=== PATIENT | female | born 1970 | race American Indian/Alaskan Native ===

== ENCOUNTER 2017-03-21 13:48 | Emergency (ER) | payer OTHER ==
[2017-03-21 14:00] VITALS: BP 139/89; PULSE 109; RESP 20; TEMP 98.3; O2SAT 99
[2017-03-21 14:28] LABS: URINE BILIRUBIN NEGATIVE (NEGATIVE); URINE BLOOD NEGATIVE (NEGATIVE); URINE GLUCOSE (UA) NORMAL (Normal); URINE KETONE NEGATIVE (NEGATIVE); URINE LEUKOCYTE ESTERASE NEG Leu/uL (Negative); URINE PROTEIN NEGATIVE (NEGATIVE); URINE UROBILINOGEN NORMAL mg/dL (0.2-1.0); WBC URINE < 1 /hpf (0-5)
[2017-03-21 14:34] LABS: URINE COLOR LIGHT YELLOW (YELLOW)
--- NOTE | 2017-03-21 14:41 | RAD ---
PROCEDURE: Radiographs of the Lumbar Spine. HISTORY: back pain COMPARISON: None available. FINDINGS: BONES: Mild curvature of the lumbar spine convex to the right. No listhesis. No acute displaced fracture identified. DISC SPACES: Unremarkable. OTHER FINDINGS: None. IMPRESSION: Mild curvature of the lumbar spine convex to the right. No acute displaced fracture identified.
--- NOTE | 2017-03-21 15:28 | C.PDOC ---
History Of Present Illness The patient, a 46 y/o female, presents to the ED for evaluation of sore throat which began around 4 days ago. Patient also notes she has been experiencing back pain. Patient denies fever, chills, ear pain, headache, upper/lower extremity numbness/weakness, or recent trauma/injury. Time Seen by Provider: 03/21/17 14:09 Chief Complaint (Nursing): ENT Problem History Per: Patient History/Exam Limitations: None Onset/Duration Of Symptoms: Days (4) Current Symptoms Are (Timing): Still Present Quality (Mouth/Throat): Other (+sore throat ) Past Medical History Reviewed: Historical Data, Nursing Documentation, Vital Signs Vital Signs: Last Vital Signs Temp 98.3 F 03/21/17 14:00 Pulse 109 H 03/21/17 14:00 Resp 20 03/21/17 14:00 BP 139/89 03/21/17 14:00 Pulse Ox 99 03/21/17 19:57 - Medical History PMH: Asthma Surgical History: No Surg Hx Family History: States: Unknown Family Hx - Social History Hx Tobacco Use: No Hx Alcohol Use: No Hx Substance Use: No - Immunization History Hx Tetanus Toxoid Vaccination: No Hx Influenza Vaccination: No Hx Pneumococcal Vaccination: Yes Review Of Systems Except As Marked, All Systems Reviewed And Found Negative. Constitutional: Negative for: Fever, Chills ENT: Positive for: Throat Pain. Negative for: Ear Pain Musculoskeletal: Positive for: Back Pain Neurological: Negative for: Weakness, Numbness, Headache Physical Exam - Physical Exam Appears: Non-toxic, No Acute Distress Skin: Normal Color, Warm, Dry Head: Atraumatic, Normacephalic Eye(s): bilateral: Normal Inspection, PERRL, EOMI Ear(s): Bilateral: Normal Nose: Normal, No Discharge Oral Mucosa: Moist Throat: Erythema, No Exudate (tonsillar ), Other (uvula is midline) Neck: Normal ROM, Supple Chest: Symmetrical, No Deformity, No Tenderness Cardiovascular: Rhythm Regular, No Murmur Respiratory: Normal Breath Sounds, No Rales, No Rhonchi, No Wheezing Back: Vertebral Tenderness (lower back ) Extremity: Normal ROM, Capillary Refill (less than 2 seconds ) Neurological/Psych: Oriented x3, Normal Speech, Normal Cognition Gait: Steady ED Course And Treatment O2 Sat by Pulse Oximetry: 99 (on RA) Pulse Ox Interpretation: Normal - Other Rad LS spine ap/lat X-Ray: Interpreted by Me, Viewed By Me, Read By Radiologist Interpretation: Accession No. : [id number]. Patient Name / ID : JAIME PRESSLEY / [id number]. Exam Date : 03/21/2017 14:30:08 ( Approved ). Study Comment : Sex / Age : F / 46Y. Creator : Pebbles Marin MD. Dictator : Pebbles Marin MD. Manager Special Events : Manufacturing Scheduler : Pebbles Marin MD. Approver2 : Report Date : 03/21/2017 14:39:19. My Comment : . PROCEDURE: Radiographs of the Lumbar Spine. HISTORY: back pain. COMPARISON: None available. FINDINGS: BONES: Mild curvature of the lumbar spine convex to the right. No listhesis. No acute displaced fracture identified. DISC SPACES: Unremarkable. OTHER FINDINGS: None. IMPRESSION: Mild curvature of the lumbar spine convex to the right. No acute displaced fracture identified. Progress Note: UA and LS Spine AP/LAT ordered. UA results are within normal limits. Patient recieved Amoxicillin. On reassessment, pt is resting comfortably , showing no signs of distress and reports an improvement in her symptoms. Pt is ambulatory in the ED without distress and is stable for discharge. Patient is advised to follow up with PMD within 1-2 days for further evaluation. Reassessment Condition: Improved Disposition - Disposition Referrals: Claudia Rubalcava MD [Medical Doctor] - Disposition: HOME/ ROUTINE Disposition Time: 15:26 Condition: STABLE Additional Instructions: Follow up with PMD within 1-2 days. Return to ED if feel worse. 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 - Scribe Statement The provider has reviewed the documentation as recorded by the Scribe (Leslie Land) All medical record entries made by the Scribe were at my direction and personally dictated by me. I have reviewed the chart and agree that the record accurately reflects my personal performance of the history, physical exam, medical decision making, and the department course for this patient. I have also personally directed, reviewed, and agree with the discharge instructions and disposition.
== END 2017-03-21 15:37 | disposition home or self-care (01) ==
LOC: C.ER 13:48
DX: J02.9 Acute pharyngitis, unspecified (principal); M54.5 Low back pain

== ENCOUNTER 2017-08-23 12:01 | Emergency (ER) | payer OTHER ==
[2017-08-23 12:10] VITALS: TEMP 98.1
--- NOTE | 2017-08-23 13:05 | C.PDOC ---
History Of Present Illness 47 y/o female with Hx of asthma, c/o right foot pain and swelling for 3 days. Pain is constant and throbbing that is 6/10. 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 Took 600mg of Ibuprofen with some relief. Denies weakness, numbness, or trauma. Time Seen by Provider: 08/23/17 12:33 Chief Complaint (Nursing): Lower Extremity Problem/Injury History Per: Patient History/Exam Limitations: no limitations Onset/Duration Of Symptoms: Days (3), Persistent Current Symptoms Are (Timing): Still Present Severity: Moderate Pain Scale Rating Of: 6 Recent travel outside of the [place]: No Additional History Per: Patient Past Medical History Reviewed: Historical Data, Nursing Documentation, Vital Signs Vital Signs: Last Vital Signs Temp 98.1 F 08/23/17 12:09 Pulse 83 08/23/17 12:09 Resp 18 08/23/17 12:09 BP 122/80 08/23/17 12:09 Pulse Ox 98 08/23/17 13:07 - Medical History PMH: Asthma Family History: States: Unknown Family Hx - Social History Hx Tobacco Use: No Hx Alcohol Use: Yes Hx Substance Use: No - Immunization History Hx Tetanus Toxoid Vaccination: No Hx Influenza Vaccination: No Hx Pneumococcal Vaccination: No Review Of Systems Constitutional: Negative for: Other (Trauma) Musculoskeletal: Positive for: Foot Pain (Right, swelling and pain.) Neurological: Negative for: Weakness, Numbness Physical Exam - Physical Exam Appears: Non-toxic, No Acute Distress Skin: Warm, Dry Extremity: Normal ROM, Tenderness (Tenderness to the ball of the right foot.), Capillary Refill (<2secs), No Deformity, Swelling (Swelling to the superficial portion of the right foot) Pulses: Left Dorsalis Pedis: Normal, Right Dorsalis Pedis: Normal Neurological/Psych: Oriented x3, Normal Motor, Normal Sensation ED Course And Treatment O2 Sat by Pulse Oximetry: 98 (RA) Pulse Ox Interpretation: Normal Medical Decision Making Medical Decision Making: Impression: * Right foot pain and swelling for 3 days. Plans: * Tylenol * Motrin Disposition Counseled Patient/Family Regarding: Diagnosis, Need For Followup, Rx Given - Disposition Disposition: HOME/ ROUTINE Disposition Time: 13:09 Condition: STABLE Prescriptions: Ibuprofen [Motrin] 600 mg PO TID #15 tab Instructions: RICE Therapy (ED) Forms: [facility] (Grenadian), General Discharge Instructions, Work Excuse - POA Present On Arrival: None - Clinical Impression Clinical Impression: Plantar fasciitis - Scribe Statement The provider has reviewed the documentation as recorded by the Scribe Liset thompson All medical record entries made by the Scribe were at my direction and personally dictated by me. I have reviewed the chart and agree that the record accurately reflects my personal performance of the history, physical exam, medical decision making, and the department course for this patient. I have also personally directed, reviewed, and agree with the discharge instructions and disposition.
[2017-08-23 13:19] VITALS: BP 120/77; PULSE 87; RESP 16; O2SAT 100
== END 2017-08-23 13:19 | disposition home or self-care (01) ==
LOC: C.ER 12:01
DX: M72.2 Plantar fascial fibromatosis (principal)

== ENCOUNTER 2018-03-14 12:03 | Emergency (ER) | payer OTHER ==
[2018-03-14 12:14] VITALS: BP 128/88; PULSE 99; RESP 20; TEMP 97.9; O2SAT 99
--- NOTE | 2018-03-14 12:56 | C.PDOC ---
History Of Present Illness 47 y/o female presents to the ER complaining of itchy, irritated eyes, runny nose, sinus pressure, and non-productive cough which has been present for the past 2 weeks. Patient states that she has a history of seasonal allergies and her PMD typically prescribes her medications. However, her PMD was very booked in the office and she should not get an appointment. Patient denies fever, sore throat, ear pain, SOB. Time Seen by Provider: 03/14/18 12:15 Chief Complaint (Nursing): Cough, Cold, Congestion History Per: Patient History/Exam Limitations: no limitations Onset/Duration Of Symptoms: Days Current Symptoms Are (Timing): Still Present Associated Symptoms: Cough. denies: Fever, Chills, Sore Throat Severity: Mild Past Medical History Reviewed: Historical Data, Nursing Documentation, Vital Signs Vital Signs: Last Vital Signs Temp 97.9 F 03/14/18 12:12 Pulse 99 H 03/14/18 12:12 Resp 20 03/14/18 12:12 BP 128/88 03/14/18 12:12 Pulse Ox 99 03/14/18 15:08 - Medical History PMH: Asthma Surgical History: No Surg Hx Family History: States: No Known Family Hx - Social History Hx Tobacco Use: No Hx Alcohol Use: Yes Hx Substance Use: No - Immunization History Hx Tetanus Toxoid Vaccination: No Hx Influenza Vaccination: No Hx Pneumococcal Vaccination: No Review Of Systems Constitutional: Negative for: Fever, Chills Eyes: Positive for: Other (itchy eyes) ENT: Positive for: Nose Congestion. Negative for: Ear Pain, Throat Pain Respiratory: Positive for: Cough (non-productive cough). Negative for: Shortness of Breath Gastrointestinal: Negative for: Nausea, Vomiting, Abdominal Pain, Diarrhea Genitourinary: Negative for: Dysuria, Hematuria Skin: Negative for: Rash Physical Exam - Physical Exam Appears: Well, Non-toxic, No Acute Distress Skin: Normal Color, Warm, Dry, No Rash Head: Normacephalic Eye(s): bilateral: Normal Inspection, PERRL, Other (no erythema, no discharge) Ear(s): Bilateral: Normal Nose: Normal, No Discharge (rhinorrhea) Oral Mucosa: Moist Throat: Normal, No Erythema, No Exudate Neck: Supple Lymphatic: No Adenopathy Cardiovascular: Rhythm Regular Respiratory: Normal Breath Sounds, No Rales, No Rhonchi, No Wheezing Neurological/Psych: Oriented x3 ED Course And Treatment O2 Sat by Pulse Oximetry: 99 (RA) Pulse Ox Interpretation: Normal Progress Note: Patient given Claritin PO in ED, as well as Rxs for Claritin and Nasonex. He was instructed to follow up with PMD in 1-2 days, and understands she should return to ED if symptoms worsen. Reassessment Condition: Improved Disposition Counseled Patient/Family Regarding: Diagnosis, Need For Followup, Rx Given - Disposition Referrals: Claudia Rubalcava MD [Medical Doctor] - Disposition: HOME/ ROUTINE Disposition Time: 13:00 Condition: STABLE Additional Instructions: FOLLOW UP WITH YOUR DOCTOR IN 1-2 DAYS USE MEDICATIONS DIRECTED RETURN TO ER IF SYMPTOMS WORSEN Prescriptions: Loratadine [Claritin] 10 mg PO DAILY #30 tab Mometasone Furoate [Nasonex] 0.05 mg NS DAILY #1 bottle Forms: [employer] (Khmer) Print Language: BENINESE - Clinical Impression Clinical Impression: Seasonal allergies - Scribe Statement The provider has reviewed the documentation as recorded by the Yvette Santiago Provider Attestation: All medical record entries made by the Taniibe were at my direction and personally dictated by me. I have reviewed the chart and agree that the record accurately reflects my personal performance of the history, physical exam, medical decision making, and the department course for this patient. I have also personally directed, reviewed, and agree with the discharge instructions and disposition.
== END 2018-03-14 13:05 | disposition home or self-care (01) ==
LOC: C.ER 12:03
DX: J30.2 Other seasonal allergic rhinitis (principal)

== ENCOUNTER 2018-08-15 17:43 | Emergency (ER) | payer OTHER ==
[2018-08-15] MEDS ORDERED: Sodium Chloride 0.9% 1,000 ML IV ONE ×2 (19:11)
--- NOTE | 2018-08-15 19:13 | C.PDOC ---
History Of Present Illness 48 y/o female presents to the ED complaining of intermittent abdominal pain since this morning. She describes the pain as a cramping sensation.The patient admits to experiencing associated vomiting and diarrhea. She denies any dysuria or fever at this time. Time Seen by Provider: 08/15/18 19:09 Chief Complaint (Nursing): Abdominal Pain History Per: Patient History/Exam Limitations: no limitations Onset/Duration Of Symptoms: Hrs Current Symptoms Are (Timing): Still Present Quality Of Discomfort: Cramping Associated Symptoms: Vomiting, Diarrhea. denies: Fever Recent travel outside of the [place]: No Past Medical History Reviewed: Historical Data, Nursing Documentation, Vital Signs Vital Signs: Last Vital Signs Temp 99 F 08/15/18 17:50 Pulse 96 H 08/15/18 17:50 Resp 18 08/15/18 17:50 BP 122/84 08/15/18 17:50 Pulse Ox 96 08/15/18 17:50 - Medical History PMH: Asthma Other Surgeries: L breast mastecomy, partial hysterectomy, lower abdominal surgery Family History: States: Unknown Family Hx - Social History Hx Tobacco Use: No Hx Alcohol Use: Yes Hx Substance Use: No - Immunization History Hx Tetanus Toxoid Vaccination: No Hx Influenza Vaccination: No Hx Pneumococcal Vaccination: No Review Of Systems Except As Marked, All Systems Reviewed And Found Negative. Constitutional: Negative for: Fever, Chills Gastrointestinal: Positive for: Abdominal Pain. Negative for: Vomiting, Diarrhea Physical Exam - Physical Exam Appears: Non-toxic, No Acute Distress Skin: Warm, Dry Head: Atraumatic, Normacephalic Eye(s): bilateral: Normal Inspection, PERRL, EOMI Ear(s): Bilateral: Normal Nose: Normal Oral Mucosa: Moist Neck: Supple Chest: Symmetrical Cardiovascular: Rhythm Regular, No Murmur Respiratory: Normal Breath Sounds, No Rales, No Rhonchi, No Wheezing Gastrointestinal/Abdominal: Soft, Tenderness (nonspecific), No Guarding, No Rebound Back: No CVA Tenderness Extremity: Normal ROM Extremity: Bilateral: Normal Color And Temperature, Normal ROM Neurological/Psych: Oriented x3, Normal Speech ED Course And Treatment - Laboratory Results Result Diagrams: 08/15/18 19:19 08/15/18 19:19 O2 Sat by Pulse Oximetry: 96 (RA) Pulse Ox Interpretation: Normal Medical Decision Making Medical Decision Making: Impression:48 y/o female with abdominal pain with associated diarrhea and vomiting since this morning plan: -CMP -Lipase -CBC -Bently 20 mg IM -Zofran inj 4 mg -IV Fluids -HCG -UA Disposition Counseled Patient/Family Regarding: Diagnosis - Disposition Referrals: [facility] [Outside] Disposition: HOME/ ROUTINE Disposition Time: 23:57 Condition: STABLE Prescriptions: Dicyclomine [Dicyclomine HCl] 10 mg PO QID #14 cap Instructions: Viral Gastroenteritis Forms: [employer] (Mozambican) - POA Present On Arrival: None - Clinical Impression Clinical Impression: Abdominal pain, Gastroenteritis - 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 - Scribe Statement The provider has reviewed the documentation as recorded by the Scribe (Karime Abdalla) Provider Attestation: All medical record entries made by the Scribe were at my direction and personally dictated by me. I have reviewed the chart and agree that the record accurately reflects my personal performance of the history, physical exam, medical decision making, and the department course for this patient. I have also personally directed, reviewed, and agree with the discharge instructions and disposition.
[2018-08-15 19:23] LABS: BASO % 0.4 % (0.0-2.0); EOS # 0.2 K/uL (0.0-0.7); EOS % 2.5 % (0.0-4.0); HEMOGLOBIN 13.2 g/dL (11.0-16.0); LYMPH % 16.4 % (20.0-40.0); MEAN CELL VOLUME 91.5 fL (81.0-99.0); MEAN CORPUSCULAR HEMOGLOBIN 29.9 pg (27.0-31.0); MEAN CORPUSCULAR HGB CONC 32.7 g/dL (33.0-37.0); MEAN PLATELET VOLUME 8.7 fL (7.2-11.7); MONO # 0.4 K/uL (0.0-0.8); MONO % 5.7 % (0.0-10.0); NEUT # 4.8 K/uL (1.8-7.0); NRBC % 0.2 % (0.0-2.0); RBC 4.43 Mil/uL (3.80-5.20); RED CELL DISTRIBUTION WIDTH 13.9 % (11.5-14.5); WHITE BLOOD COUNT 6.3 K/uL (4.8-10.8)
[2018-08-15] MEDS ORDERED: Sodium Chloride 0.9% 1,000 ML ONE ×2 (19:23→20:12)
[2018-08-15 19:34] LABS: ALB/GLOB RATIO 1.4 (1.0-2.1); ALBUMIN 4.1 g/dL (3.5-5.0); ALT/SGPT 24 U/L (9-52); AST/SGOT 14 U/L (14-36); BLOOD UREA NITROGEN 11 mg/dL (7-17); CALCIUM 9.4 mg/dl (8.6-10.4); GFR NON-AFRICAN AMERICAN > 60; LIPASE 127 U/L (23-300)
[2018-08-15 22:01] LABS: SQUAMOUS EPITHIAL 13 /hpf (0-5); URINE BACTERIA OCC (<OCC); URINE BILIRUBIN NEGATIVE (NEGATIVE); URINE BLOOD NEGATIVE (NEGATIVE); URINE CLARITY Hazy (Clear); URINE GLUCOSE (UA) NORMAL (Normal); URINE LEUKOCYTE ESTERASE TRACE Leu/uL (Negative); URINE PROTEIN NEGATIVE (NEGATIVE); URINE UROBILINOGEN NORMAL mg/dL (0.2-1.0)
[2018-08-15 22:02] LABS: HCG,QUALITATIVE URINE NEGATIVE (NEGATIVE)
[2018-08-15 22:03] LABS: URINE COLOR YELLOW (YELLOW)
[2018-08-15 23:41] VITALS: BP 100/66; PULSE 77; RESP 22; TEMP 98.5
[2018-08-16] VITALS: O2SAT 96
== END 2018-08-16 00:12 | disposition home or self-care (01) ==
LOC: C.ER 17:43
DX: K52.9 Noninfective gastroenteritis and colitis, unspecified (principal); R10.9 Unspecified abdominal pain
CPT/HCPCS: 80053; 81001; 83690; 84703; 85025; 96361; 96372; 96374; 99285; J0500; J2405; J7030

== ENCOUNTER 2018-09-18 10:15 | Emergency (ER) | payer OTHER ==
[2018-09-18 10:27] VITALS: BMI 27.4
[2018-09-18 10:31] VITALS: BP 119/84; PULSE 82; RESP 18; TEMP 98.8; O2SAT 95
--- NOTE | 2018-09-18 10:53 | C.PDOC ---
History Of Present Illness 48-year-old female, presents to the emergency department with complaints of sore throat, runny nose and cough x3 days. Patient denies any fever, shortness of breath, abdominal pain, nausea/vomiting, diarrhea, or any other associated symptoms. No other complaints at this time. Time Seen by Provider: 09/18/18 10:34 Chief Complaint (Nursing): ENT Problem History Per: Patient History/Exam Limitations: no limitations Current Symptoms Are (Timing): Still Present Past Medical History Reviewed: Historical Data, Nursing Documentation, Vital Signs Vital Signs: Last Vital Signs Temp 98.8 F 09/18/18 10:27 Pulse 82 09/18/18 10:27 Resp 18 09/18/18 10:27 BP 119/84 09/18/18 10:27 Pulse Ox 95 09/18/18 10:27 - Medical History PMH: Asthma Family History: States: No Known Family Hx - Social History Hx Tobacco Use: No Hx Alcohol Use: Yes Hx Substance Use: No - Immunization History Hx Tetanus Toxoid Vaccination: No Hx Influenza Vaccination: No Hx Pneumococcal Vaccination: No Review Of Systems Constitutional: Negative for: Fever ENT: Positive for: Nose Discharge, Throat Pain Respiratory: Positive for: Cough. Negative for: Shortness of Breath, Sputum Gastrointestinal: Negative for: Vomiting Physical Exam - Physical Exam Appears: Non-toxic, No Acute Distress Skin: Warm, Dry, No Rash Head: Atraumatic Eye(s): bilateral: Normal Inspection Ear(s): Bilateral: Normal Nose: Normal Oral Mucosa: Moist Lips: Normal Appearing Throat: Erythema, No Exudate, No Drooling, No Mass Neck: Normal ROM, Supple Chest: Symmetrical Cardiovascular: Rhythm Regular, No Murmur Respiratory: Normal Breath Sounds, No Accessory Muscle Use Neurological/Psych: Oriented x3, Normal Speech ED Course And Treatment O2 Sat by Pulse Oximetry: 95 Pulse Ox Interpretation: Normal (RA) Progress Note: Pt treated with Tylenol Disposition Counseled Patient/Family Regarding: Diagnosis, Need For Followup, Rx Given - Disposition Referrals: Claudia Rubalcava MD [Medical Doctor] - Disposition: HOME/ ROUTINE Disposition Time: 10:55 Condition: STABLE Additional Instructions: FOLLOW UP WITH YOUR DOCTOR IN 1-2 DAYS USE MEDICATIONS NEEDED DRINK PLENTY OF FLUIDS RETURN TO ER IF SYMPTOMS WORSEN Prescriptions: Benzonatate [Tessalon Perles] 100 mg PO BID PRN #15 sgl PRN Reason: Cough Naproxen 375 mg PO BID PRN #20 tablet PRN Reason: pain Phenol/Glycerin [Chloraseptic Max Bosworth] 1 spray MM Q6 PRN #1 spray PRN Reason: THROAT PAIN Instructions: Viral Syndrome (DC) Forms: [facility] (Lithuanian), Work Excuse Print Language: SAMOAN - Clinical Impression Clinical Impression: Viral syndrome - Scribe Statement The provider has reviewed the documentation as recorded by the Scribe (Moy Thibodeaux) Provider Attestation: All medical record entries made by the Scribe were at my direction and personally dictated by me. I have reviewed the chart and agree that the record accurately reflects my personal performance of the history, physical exam, medical decision making, and the department course for this patient. I have also personally directed, reviewed, and agree with the discharge instructions and disposition.
== END 2018-09-18 11:06 | disposition home or self-care (01) ==
LOC: C.ER 10:15
DX: B34.9 Viral infection, unspecified (principal)

== ENCOUNTER 2018-10-27 08:39 | Emergency (ER) | payer OTHER ==
[2018-10-27 08:39] VITALS: BMI 27.4
[2018-10-27 08:50] VITALS: RESP 20; O2SAT 100
--- NOTE | 2018-10-27 09:29 | C.PDOC ---
History Of Present Illness 48 years old female presents to ED for complaints of dysuria and frequency associated with diffuse back pain. 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 Patient also reports recently she has been drinking a lot of caffeine and soda. Denies hematuria, fever, chills, nausea, vomiting, abdominal pain or any other complaints. Time Seen by Provider: 10/27/18 08:52 Chief Complaint (Nursing): Back Pain History Per: Patient History/Exam Limitations: no limitations Onset/Duration Of Symptoms: Hrs Current Symptoms Are (Timing): Still Present Previous Symptoms: None Associated Symptoms: None Exacerbating Factor(s): Nothing Recent travel outside of the [place]: No Past Medical History Reviewed: Historical Data, Nursing Documentation, Vital Signs Vital Signs: Last Vital Signs Temp 97.8 F 10/27/18 08:47 Pulse 87 10/27/18 08:47 Resp 20 10/27/18 08:47 BP 114/78 10/27/18 08:47 Pulse Ox 100 10/27/18 08:47 - Medical History PMH: Asthma Family History: States: Unknown Family Hx - Social History Hx Tobacco Use: No Hx Alcohol Use: Yes Hx Substance Use: No - Immunization History Hx Tetanus Toxoid Vaccination: No Hx Influenza Vaccination: No Hx Pneumococcal Vaccination: No Review Of Systems Constitutional: Negative for: Fever, Chills Gastrointestinal: Negative for: Nausea, Vomiting, Abdominal Pain, Diarrhea Genitourinary: Positive for: Dysuria, Frequency. Negative for: Hematuria, Vaginal Discharge, Vaginal Bleeding Skin: Negative for: Rash Neurological: Negative for: Weakness, Numbness Physical Exam - Physical Exam Appears: Non-toxic, No Acute Distress Skin: Normal Color, Warm, Dry, No Rash Head: Atraumatic, Normacephalic Eye(s): bilateral: Normal Inspection, PERRL, EOMI Oral Mucosa: Moist Neck: Normal ROM Chest: Symmetrical, No Tenderness Cardiovascular: Rhythm Regular Respiratory: Normal Breath Sounds, No Rales, No Rhonchi, No Wheezing Gastrointestinal/Abdominal: Bowel Sounds (Active ), Soft, No Tenderness, No Guarding Back: Normal Inspection, No CVA Tenderness Extremity: Normal ROM Extremity: Bilateral: Atraumatic, Normal Color And Temperature, Normal ROM Pulses: Left Radial: Normal, Right Radial: Normal Neurological/Psych: Oriented x3, Normal Speech Gait: Steady ED Course And Treatment O2 Sat by Pulse Oximetry: 100 (RA) Pulse Ox Interpretation: Normal Medical Decision Making Medical Decision Making: Plan: * Tylenol * Urine Culture * Urinalysis Progress: UA negative On re-examination, patient is resting comfortably in no acute distress. Patient reports improvement of symptoms. Patient feels comfortable going home and will be discharged. Patient given follow up instructions. Instructed to return to ER if symptoms worsen or new symptoms arise. Disposition Counseled Patient/Family Regarding: Diagnosis, Need For Followup, Rx Given - Disposition Referrals: Claudia Rubalcava MD [Medical Doctor] - Disposition: HOME/ ROUTINE Disposition Time: 10:22 Condition: STABLE Additional Instructions: Please apply heat to area of pain Take Tylenol or Ibuprofen as needed for pain Take Flexeril as needed for muscle pain, may cause drowsiness Follow up with your primary medical doctor or clinic in 2-5 days for further evaluation. Return to the emergency department at any time if symptoms persist or worsen. 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 - Scribe Statement The provider has reviewed the documentation as recorded by the Yvette Zarco All medical record entries made by the Taniibjhon were at my direction and personally dictated by me. I have reviewed the chart and agree that the record accurately reflects my personal performance of the history, physical exam, medical decision making, and the department course for this patient. I have also personally directed, reviewed, and agree with the discharge instructions and disposition.
[2018-10-27 09:49] LABS: SQUAMOUS EPITHIAL < 1 /hpf (0-5); URINE BILIRUBIN NEGATIVE (NEGATIVE); URINE BLOOD NEGATIVE (NEGATIVE); URINE CLARITY Clear (Clear); URINE COLOR Colorless (YELLOW); URINE GLUCOSE (UA) NORMAL (Normal); URINE LEUKOCYTE ESTERASE NEG Leu/uL (Negative); URINE PROTEIN NEGATIVE (NEGATIVE); URINE UROBILINOGEN NORMAL mg/dL (0.2-1.0)
[2018-10-27 09:50] LABS: HCG,QUALITATIVE URINE NEGATIVE (NEGATIVE)
[2018-10-27 10:45] VITALS: BP 119/80; PULSE 71; TEMP 98.1
== END 2018-10-27 10:45 | disposition home or self-care (01) ==
LOC: C.ER 08:39
DX: M54.5 Low back pain (principal)

== ENCOUNTER 2018-12-22 08:00 | Emergency (ER) | payer OTHER ==
[2018-12-22 08:00] VITALS: BMI 27.4
--- NOTE | 2018-12-22 08:44 | C.PDOC ---
History Of Present Illness 48 years old female presents to ED for complaints of right flank pain associated with dysuria and white vaginal discharge that began 1 week ago. Denies fever, nausea, vomiting, or any other physical complaints. Denies unprotected sex. Time Seen by Provider: 12/22/18 08:22 Chief Complaint (Nursing): Back Pain History Per: Patient History/Exam Limitations: no limitations Onset/Duration Of Symptoms: Days (7) Current Symptoms Are (Timing): Still Present Previous Symptoms: None Associated Symptoms: None Exacerbating Factor(s): Nothing Recent travel outside of the [place]: No Past Medical History Reviewed: Historical Data, Nursing Documentation, Vital Signs Vital Signs: Last Vital Signs Temp 98.7 F 12/22/18 08:21 Pulse 92 H 12/22/18 08:21 Resp 17 12/22/18 08:21 BP 128/83 12/22/18 08:21 Pulse Ox 98 12/22/18 08:21 - Medical History PMH: Asthma Family History: States: Unknown Family Hx - Social History Hx Tobacco Use: No Hx Alcohol Use: Yes Hx Substance Use: No - Immunization History Hx Tetanus Toxoid Vaccination: No Hx Influenza Vaccination: No Hx Pneumococcal Vaccination: No Review Of Systems Except As Marked, All Systems Reviewed And Found Negative. Constitutional: Negative for: Fever, Chills Gastrointestinal: Positive for: Other (Flank pain ) Genitourinary: Positive for: Dysuria, Vaginal Discharge (white) Skin: Negative for: Rash Neurological: Negative for: Weakness, Numbness Physical Exam - Physical Exam Appears: Non-toxic, No Acute Distress Skin: Normal Color, Warm, Dry, No Rash Head: No Atraumatic, No Normacephalic Eye(s): bilateral: Normal Inspection, PERRL, EOMI Oral Mucosa: Moist Neck: Normal ROM, Supple Chest: Symmetrical, No Tenderness Cardiovascular: Rhythm Regular, No Murmur Respiratory: Normal Breath Sounds, No Rales, No Rhonchi, No Wheezing Gastrointestinal/Abdominal: Bowel Sounds (Active ), Soft, Tenderness (Right flank ), No Guarding, No Rebound Extremity: Normal ROM Extremity: Bilateral: Atraumatic, Normal Color And Temperature, Normal ROM Pulses: Left Radial: Normal, Right Radial: Normal Neurological/Psych: Oriented x3, Normal Speech Gait: Steady ED Course And Treatment O2 Sat by Pulse Oximetry: 98 (RA) Pulse Ox Interpretation: Normal Medical Decision Making Medical Decision Making: Plan: * Toradol * Urine Culture * Urinalysis Progress: Upon re-evaluation, patient states pain improved. Denies any complaints at this time. Care instructions advised and patient is in agreement. Patient is stable for discharge and will be discharged. Return if symptoms persist or worsen. Disposition Counseled Patient/Family Regarding: Studies Performed, Diagnosis, Need For Followup, Rx Given - Disposition Referrals: Claudia Rubalcava MD [Medical Doctor] - Disposition: HOME/ ROUTINE Disposition Time: 11:23 Condition: STABLE Prescriptions: Fluconazole [Diflucan] 150 mg PO ONCE 1 Days tab Naproxen [EC-Naprosyn] 500 mg PO BID 5 Days tablet. Nitrofurantoin Macrocrystals [Macrobid] 100 mg PO BID 5 Days cap Instructions: Low Back Pain in Adults Forms: [facility] (Namibian), Work Excuse - POA Present On Arrival: None - Clinical Impression Clinical Impression: Lower back pain, Vaginitis - Scribe Statement The provider has reviewed the documentation as recorded by the Scribjhon Zarco All medical record entries made by the Taniibjhon were at my direction and personally dictated by me. I have reviewed the chart and agree that the record accurately reflects my personal performance of the history, physical exam, medical decision making, and the department course for this patient. I have also personally directed, reviewed, and agree with the discharge instructions and disposition.
[2018-12-22 09:25] LABS: SQUAMOUS EPITHIAL 4 /hpf (0-5); URINE BACTERIA RARE (<OCC); URINE BILIRUBIN NEGATIVE (NEGATIVE); URINE BLOOD NEGATIVE (NEGATIVE); URINE CLARITY Clear (Clear); URINE COLOR Yellow (YELLOW); URINE GLUCOSE (UA) NORMAL (Normal); URINE LEUKOCYTE ESTERASE NEG Leu/uL (Negative); URINE PROTEIN NEGATIVE (NEGATIVE)
--- NOTE | 2018-12-22 11:18 | CT ---
Date of service: 12/22/2018 PROCEDURE: CT Abdomen and Pelvis without intravenous contrast HISTORY: R. flank pain COMPARISON: None. TECHNIQUE: Helical CT of the abdomen and pelvis was performed without oral or intravenous contrast as per referring physician request. Coronal and sagittal reformats were generated.. Contrast dose: None Radiation dose: Total exam DLP = 425.38 mGy-cm. This CT exam was performed using one or more of the following dose reduction techniques: Automated exposure control, adjustment of the mA and/or kV according to patient size, and/or use of iterative reconstruction technique. FINDINGS: LOWER THORAX: Linear atelectasis or fibrosis bilateral bases, left greater than right. LIVER: 3.7 cm cyst at the anterior dome and a 1.7 cm cyst seen in the posterior dome of the right lobe liver. GALLBLADDER AND BILE DUCTS: Unremarkable. PANCREAS: Unremarkable. No gross lesion or ductal dilatation. SPLEEN: Unremarkable. ADRENALS: Unremarkable. No mass. KIDNEYS AND URETERS: No radiodense urolithiasis, perinephric fluid collection or obstructive uropathy is appreciate bilaterally. The bilateral ureters appear normal caliber overall. VASCULATURE: Unremarkable. No aortic aneurysm. No aortic atherosclerotic calcification or mural plaque present. BOWEL: Mildly prominent fecal loading seen throughout the colon which may indicate an element constipation. No obstruction. No gross mural thickening. APPENDIX: Unremarkable. Normal appendix. PERITONEUM: Unremarkable. No free fluid. No free air. LYMPH NODES: Unremarkable. No enlarged lymph nodes. BLADDER: Unremarkable. REPRODUCTIVE: Unremarkable. BONES: No acute fracture. OTHER FINDINGS: None. IMPRESSION: No definite acute abdominal or pelvic findings.. Possible constipation. Two cysts seen at the dome of the liver.
[2018-12-22 11:49] VITALS: BP 122/78; PULSE 78; RESP 18; TEMP 97.8
[2018-12-22 12:03] VITALS: O2SAT 98
== END 2018-12-22 11:50 | disposition home or self-care (01) ==
LOC: C.ER 08:00
DX: M54.5 Low back pain (principal); N76.0 Acute vaginitis
CPT/HCPCS: 74176; 81001; 81025; 87086; 87804; 96372; 99284; J1885

== ENCOUNTER 2019-02-05 12:48 | Emergency (ER) | payer OTHER ==
[2019-02-05 12:48] VITALS: BMI 27.4
[2019-02-05 13:12] VITALS: O2SAT 100
--- NOTE | 2019-02-05 14:12 | C.PDOC ---
History Of Present Illness 48 y/o female presents to the ED for complaints of vomiting and diarrhea since this morning. Patient reports multiple episodes of watery diarrhea and multiple episodes of non-bloody vomiting, consistent with food. Associated with abdominal cramping. No fever. Patient admits to +sick contacts at work. She denies any recent travel. No other associated symptoms. Time Seen by Provider: 02/05/19 13:40 Chief Complaint (Nursing): Abdominal Pain History Per: Patient History/Exam Limitations: no limitations Onset/Duration Of Symptoms: Hrs Current Symptoms Are (Timing): Still Present Past Medical History Reviewed: Historical Data, Nursing Documentation, Vital Signs Vital Signs: Last Vital Signs Temp 98.8 F 02/05/19 13:07 Pulse 112 H 02/05/19 13:07 Resp 18 02/05/19 13:07 BP 109/78 02/05/19 13:07 Pulse Ox 100 02/05/19 13:07 - Medical History PMH: Asthma Other Surgeries: Left breast biopsy, partial hysterectomy Family History: States: Unknown Family Hx - Social History Hx Tobacco Use: No Hx Alcohol Use: Yes Hx Substance Use: No - Immunization History Hx Tetanus Toxoid Vaccination: No Hx Influenza Vaccination: No Hx Pneumococcal Vaccination: No Review Of Systems Except As Marked, All Systems Reviewed And Found Negative. Constitutional: Negative for: Fever, Chills Cardiovascular: Negative for: Chest Pain Respiratory: Negative for: Shortness of Breath Gastrointestinal: Positive for: Vomiting, Abdominal Pain, Diarrhea. Negative for: Hematochezia, Hematemesis Genitourinary: Negative for: Dysuria, Frequency Musculoskeletal: Negative for: Back Pain Neurological: Negative for: Weakness, Numbness Physical Exam - Physical Exam Appears: Non-toxic, No Acute Distress, Other (Appears comfortable, no active vomiting) Skin: Warm, Dry, No Rash Head: Atraumatic, Normacephalic Eye(s): bilateral: Normal Inspection, PERRL, EOMI Oral Mucosa: Moist Neck: Normal ROM Chest: Symmetrical Cardiovascular: Rhythm Regular, No Murmur Respiratory: Normal Breath Sounds, No Accessory Muscle Use, Other (NARD) Gastrointestinal/Abdominal: Soft, No Tenderness, No Distention, No Guarding Back: No CVA Tenderness Extremity: Bilateral: Atraumatic, Normal Color And Temperature, Normal ROM Neurological/Psych: Oriented x3, Normal Speech ED Course And Treatment - Laboratory Results Result Diagrams: 02/05/19 14:20 02/05/19 14:20 O2 Sat by Pulse Oximetry: 100 (RA) Pulse Ox Interpretation: Normal Progress - Re-Evaluation Re-evaluation Note: 02/05/19 15:52 TOLERATING PO WO DIFF. FEELS BETTER - Data Reviewed Data Reviewed: Lab, Old records Medical Decision Making Medical Decision Making: Plan: - BMP - CBC - NS IV fluids - 4 mg IV Zofran - 1 tab PO Lomotil Disposition Counseled Patient/Family Regarding: Studies Performed, Diagnosis, Need For Followup, Rx Given - Disposition Referrals: YOUR,PMD [Other] Disposition: HOME/ ROUTINE Disposition Time: 15:53 Condition: IMPROVED Prescriptions: Atropine/Diphenoxylate [Lonox 0.025 MG-2.5 MG] 1 tab PO BID #6 tab Ondansetron ODT [Zofran ODT] 4 mg PO TID PRN #12 odt PRN Reason: Nausea/Vomiting Instructions: Nausea and Vomiting, Adult (DC), Diarrhea and Traveler's Diarrhea, Adult (DC) Forms: [employer], [employer] (Frisian), Work Excuse - Clinical Impression Clinical Impression: Vomiting, Diarrhea - Scribe Statement The provider has reviewed the documentation as recorded by the Yvette Castro Provider Attestation: All medical record entries made by the Taniibjhon were at my direction and persona lly dictated by me. I have reviewed the chart and agree that the record accurately reflects my personal performance of the history, physical exam, medical decision making, and the department course for this patient. I have also personally directed, reviewed, and agree with the discharge instructions and disposition.
[2019-02-05] MEDS ORDERED: Atropine-Diphenoxylate 0.025-2.5 mg Tab PO STA (14:13)
[2019-02-05] MEDS ORDERED: Sodium Chloride 0.9% 500 ML IV ONE (14:13)
[2019-02-05] MEDS ORDERED: Atropine-Diphenoxylate 0.025-2.5 mg Tab ONE (14:23)
[2019-02-05] MEDS ORDERED: Sodium Chloride 0.9% 1,000 ML ONE (14:24)
[2019-02-05 14:25] LABS: BASO % 0.2 % (0.0-2.0); EOS # 0.1 K/uL (0.0-0.7); EOS % 2.3 % (0.0-4.0); HEMOGLOBIN 15.8 g/dL (11.0-16.0); LYMPH # 0.6 K/uL (1.0-4.3); LYMPH % 14.9 % (20.0-40.0); MEAN CELL VOLUME 92.7 fL (81.0-99.0); MEAN CORPUSCULAR HEMOGLOBIN 30.1 pg (27.0-31.0); MEAN CORPUSCULAR HGB CONC 32.5 g/dL (33.0-37.0); MEAN PLATELET VOLUME 8.9 fL (7.2-11.7); MONO # 0.1 K/uL (0.0-0.8); NEUT # 3.3 K/uL (1.8-7.0); NEUT % 79.6 % (50.0-75.0); NRBC % 0.1 % (0.0-2.0); RBC 5.27 Mil/uL (3.80-5.20); RED CELL DISTRIBUTION WIDTH 13.6 % (11.5-14.5); WHITE BLOOD COUNT 4.2 K/uL (4.8-10.8)
[2019-02-05 14:37] LABS: BLOOD UREA NITROGEN 16 mg/dL (7-17); CALCIUM 9.8 mg/dl (8.6-10.4); GFR NON-AFRICAN AMERICAN > 60
[2019-02-05 16:17] VITALS: BP 100/64; PULSE 88; RESP 19; TEMP 98.1
== END 2019-02-05 16:28 | disposition home or self-care (01) ==
LOC: C.ER 12:48
DX: R11.10 Vomiting, unspecified (principal); R19.7 Diarrhea, unspecified
CPT/HCPCS: 80048; 81025; 85025; 96361; 96374; 99285; J2405; J7040

== ENCOUNTER 2019-02-28 14:33 | Outpatient (CLI) | payer OTHER | END 2019-02-28 14:34 | disposition home or self-care (01) | LOC: C.MAMMO 14:34 | DX: Z12.31 Encounter for screening mammogram for malignant neoplasm of breast (principal) ==